=== PATIENT | female | born 1975 | race Hispanic/Latino ===

== ENCOUNTER → 2016-07-07 | Outpatient (CLI) | payer OTHER, BC ==
--- NOTE | 2016-07-07 13:14 | RAD ---
EXAM DESCRIPTION: XR CHEST 2 VIEWS CLINICAL HISTORY: POST PROCEDURAL FEVER COMPARISON: None Available. TECHNIQUE: PA/lateral FINDINGS: There is no cardiac or pulmonary abnormality. The lungs are clear. There is no effusion. IMPRESSION: No evidence of pneumonia on today's two-view chest Electronically signed by: Coy Angulo MD 07/07/2016 13:11
--- NOTE | 2016-07-07 13:16 | RAD ---
EXAM DESCRIPTION: Abdomen radiography. CLINICAL HISTORY: Postprocedure pain COMPARISON: None. TECHNIQUE: Two views. FINDINGS: Bowel gas pattern is non-obstructed. There is no obvious free intraperitoneal air. Visualized segments of the abdominal organs are unremarkable. No suspicious bone lesion or fracture is seen. IMPRESSION: No significant abnormality. Electronically signed by: Coy Angulo MD 07/07/2016 13:15
== END ==
LOC: LAB 12:31
PROVIDERS: ATTEND Obstetrics & Gynecology
DX: K91.3 Postprocedural intestinal obstruction (principal); R50.82 Postprocedural fever